=== PATIENT | male | born 1955 ===

== ENCOUNTER 2020-01-21 09:04 | Observation (INO) | payer OTHER ==
[~2020-01-21] VITALS: Ht 175 cm; Wt 153.2 kg
[2020-01-21 11:24] VITALS: BP 132/57
[2020-01-21] MEDS ORDERED: PATIENT MAY USE OWN MEDS, ALL PO SCH (11:45)
[2020-01-21] MEDS ORDERED: NITROGLYCERIN 0.4 MG SL TABS BTL 25'S SL PRN (11:45)
[2020-01-21] MEDS ORDERED: morphine INJ 4 MG/ML 1 ML (VIAL/SYRINGE) IV PRN (11:45)
[2020-01-21] MEDS ORDERED: ONDANSETRON 4 MG/2 ML (SDV) Z0FRAN IVP PRN (11:45)
[2020-01-21] MEDS ORDERED: ALIVE MULTIVITAMIN PO (13:47)
[2020-01-21] MEDS ORDERED: ACET-2267 PO (13:47)
[2020-01-21] MEDS ORDERED: LISI40TA PO (13:47)
[2020-01-21] MEDS ORDERED: APIX5TAB PO (13:47)
[2020-01-21] MEDS ORDERED: HYDR25TA4 PO (13:47)
--- NOTE | 2020-01-21 13:51 | NUR ---
SPOKE WITH THE PT (HE HAD A MED LIST) AND WENT THRU THE EXT MED HISTORY AND CALLED [facility] TO COMPLETE THE MED REC ON 12-13-2019 [facility] FILLED HCTZ 25MG #90/90DS AND LISINOPRIL 40MG #90/90DS (THESE ARE NOT SHOWN ON THE EXT MED HISTORY) OTC MEDS: TYLENOL MTV (PT IS ADAMANT THAT HE CAN ONLY TAKE THE ALIVE BRAND AND ALL OTHER MTV'S CAUSE HIM TO BREAK OUT IN HIVES) PT HAS LORATADINE 10MG ON HIS MEDICATION LIST HOWEVER PT SAYS HE IS NO LONGER TAKING, THEREFORE I DID NOT INCLUDE ON THE MED REC
[2020-01-21] MEDS ORDERED: ENOXAPARIN 100 MG/1 ML (LOVENOX) SYR SC SCH (14:00)
[2020-01-21] MEDS ORDERED: ACETAMINOPHEN 325 MG TABLET ONE (14:22)
[2020-01-21] MEDS: ACETAMINOPHEN 325 MG TABLET PO PRN ×2 (14:25→20:19)
--- NOTE | 2020-01-21 15:02 | History & Physical-Hospitalist ---
History of Present Illness HPI/Chief Complaint Pt is a a 64yo CM with a PMH of HTN and valvular disease who presented to outside ER due to fever, shaking, and chest pain. He states that he was very active yesterday shopping around town with his son and when he got home yesterday around 2pm he was very tired though so he took a npa and when he woke up he was shaking and had a fever of 103. This prompted him to seek evaluation in the ER. He apparently had chest pain and a troponin was checked. It was a high sensitivity troponin and was 27. They trended this and it went to 39 and then 64. This prompted transfer here. He states that he no longer has chest pain. He was given ASA there. He normally follows with Dr Sorto and had a valvular surgical a few years ago though he was unable to tell me which valve. His only complaint at this time is back and hip pain when he states is chronic and he takes Tylenol for. Source: patient Date Seen 01/21/20 Time Seen by a Provider: 15:00 Attending Physician Jackelin Riley MD PCP Slava Sanchez MD Referring Physician Date of Admission Jan 21, 2020 at 11:05 Home Medications & Allergies Home Medications Reviewed patient Home Medication Reconciliation performed by pharmacy medication reconciliations quick service technician and/or nursing. Patients Allergies have been reviewed. Allergies Allergies Coded Allergies Penicillins (Verified Allergy, Unknown, 01/21/20) Past Xubmucd-Ouafck-Ylqaln Hx Past Med/Social Hx: Reviewed Nursing Past Med/Soc Hx Patient Social History Alcohol Use: Denies Use Recreational Drug Use: No Smoking Status: Former Smoker Physical Abuse Screen: No Sexual Abuse: No Recent Foreign Travel: No Recent Hopitalizations: Yes Seasonal Allergies Seasonal Allergies: No Past Medical History Surgeries: Cardiac Currently Using CPAP: Yes Cardiac: Hypertension Musculoskeletal: Arthritis History of Blood Disorders: No Adverse Reaction to Blood Kiran: No Family History Reviewed Nursing Family Hx No Pertinent Family Hx Review of Systems Constitutional: chills, fever, malaise EENTM: no symptoms reported Respiratory: cough; No orthopnea, No short of breath Cardiovascular: see HPI, chest pain Gastrointestinal: No abdominal pain, No constipation, No diarrhea, No nausea, No vomiting Genitourinary: No discharge, No dysuria Musculoskeletal: no symptoms reported Skin: no symptoms reported Psychiatric/Neurological: No Symptoms Reported Physical Exam Physical Exam Vital Signs Vital Signs - First Documented 01/21/20 01/21/20 11:05 11:24 Temp 36.4 Pulse 97 Resp 20 B/P (MAP) 132/57 Pulse Ox 93 O2 Delivery Room Air Capillary Refill : Height, Weight, BMI Height: '" Weight: lbs. oz. kg; 50.61 BMI Method: General Appearance: No Apparent Distress, WD/WN, Obese HEENT: PERRL/EOMI, Moist Mucous Membranes; No Scleral Icterus (L), No Scleral Icterus (R) Neck: Normal Inspection, Supple; No JVD Respiratory: Chest Non Tender, Lungs Clear, No Accessory Muscle Use, No Respiratory Distress Cardiovascular: Regular Rate, Rhythm, No Murmur Gastrointestinal: Normal Bowel Sounds, Non Tender, Soft Extremity: No Calf Tenderness, Swelling (compression socks in place) Neurologic/Psychiatric: Alert, Oriented x3, Normal Mood/Affect Skin: Normal Color, Warm/Dry Results Results/Procedures Labs Laboratory Tests 01/21/20 17:10 01/22/20 02:29 Patient resulted labs reviewed. Assessment/Plan Admission Diagnosis NSTEMI Admission Status: Inpatient Order (span 2 midnights) Reason for Inpatient Admission: see below Assessment and Plan NSTEMI HTN Valvular disease Cardiology consulted, appreciate recs Troponin trended up Monitor on telemetry Request records from [facility] Fever COVID negative Cultures done at outside facility, await results No evidence of infection at this time but will cover with IV abx given valve replacement DVT ppx: Eliquis Diagnosis/Problems Diagnosis/Problems (1) Fever (2) HTN (hypertension) Status: Chronic Qualifiers: Hypertension type: essential hypertension Qualified Codes: I10 - Essential (primary) hypertension (3) NSTEMI (non-ST elevated myocardial infarction) Status: Acute (4) Morbid obesity with BMI of 50.0-59.9, adult Status: Chronic (5) Aortic valve replaced Status: Chronic Clinical Quality Measures DVT/VTE Risk/Contraindication: Risk Factor Score Per Nursin RFS Level Per Nursing on Admit: 3=High JACKELIN RILEY MD Jan 21, 2020 15:02
[2020-01-21 16:00] VITALS: BP 94/52
[2020-01-21] MEDS ORDERED: VANCOMYCIN INJECTION 1,000 MG in NS (IVPB) 250 ML IV SCH (17:00)
[2020-01-21] MEDS ORDERED: CEFEPIME 1,000 MG/SWFI 10 ML IV PUSH IV NR ×2 (17:00)
--- NOTE | 2020-01-21 17:01 | Consultation-Cardiology ---
HPI-Cardiology Cardiology Consultation Date of Consultation 01/21/20 Date of Admission Time Seen by Provider: 16:56 Indication: elevated troponin level HPI 64 years old gentleman with history of aortic valve replacement done about 3 years ago, hypertension hyperlipidemia and morbid obesity. Woke up with fever and chills and temperature 103. Patient went to the emergency room and had septic workup, part of the workup included troponin which was mildly elevated. He denied any chest pain, reported some shortness of breath which has been worsening for the past few days. No syncope or near syncopal episode, reported that he had urinary tract infection and given one dose of antibiotic in the emergency room and transferred to our facility. Since arrival is been sitting comfortably in bed denied any fever or chills denied any chest pain or shortness of breath. Home Medications & Allergies Allergies: Coded Allergies: Penicillins (Verified Allergy, Unknown, 01/21/20) Home Medication List Reviewed: Yes LYC-Ogtzpe-Xnuntu Hx Patient Social History Employed/Student: employed Alcohol Use: Denies Use Recreational Drug Use: No Smoking Status: Former Smoker Recent Foreign Travel: No Recent Hopitalizations: Yes Physical Abuse Screen: No Sexual Abuse: No Past Medical History Discussed below Family Medical History Significant Family History: No Pertinent Family Hx Review of Systems-General Review of Systems Constitutional: chills, fever, malaise EENTM: no symptoms reported Respiratory: see HPI, cough, dyspnea on exertion; No hemoptysis, No orthopnea, No phlegm, No short of breath, No stridor, No wheezing, No other Cardiovascular: see HPI, chest pain Gastrointestinal: no symptoms reported, see HPI; No abdominal pain, No constipation, No diarrhea, No nausea, No vomiting Genitourinary: no symptoms reported, see HPI; No discharge, No dysuria Musculoskeletal: no symptoms reported, see HPI Skin: no symptoms reported, see HPI Psychiatric/Neurological: No Symptoms Reported, See HPI Reviewed Test Results Reviewed Test Results Lab Laboratory Tests Test 01/21/20 12:24 Range/Units Troponin I 0.075 H <0.028 NG/ML Physical Exam Physical Exam Vital Signs Vital Signs - First Documented 01/21/20 01/21/20 11:05 11:24 Temp 36.4 Pulse 97 Resp 20 B/P (MAP) 132/57 Pulse Ox 93 O2 Delivery Room Air Capillary Refill : Height, Weight, BMI Height: '" Weight: lbs. oz. kg; 50.61 BMI Method: General Appearance: No Apparent Distress, WD/WN, Obese HEENT: PERRL/EOMI, Moist Mucous Membranes; No Scleral Icterus (L), No Scleral Icterus (R) Neck: Normal Inspection, Supple; No JVD Respiratory: Chest Non Tender, Lungs Clear, No Accessory Muscle Use, No Respiratory Distress Cardiovascular: Regular Rate, Rhythm, No Murmur, Systolic Murmur Gastrointestinal: Normal Bowel Sounds, Non Tender, Soft Extremity: No Calf Tenderness, Swelling (compression socks in place) Neurologic/Psychiatric: Alert, Oriented x3, Normal Mood/Affect Skin: Normal Color, Warm/Dry A/P-Cardiology Admission Diagnosis Fever and chills Type II myocardial infarction Aortic valve stenosis Hypertension Assessment/Plan Fever and chills, mild leukocytosis, UTI. No other source of infection was noted. Patient has history of aortic valve replacement, will repeat blood culture and start antibiotic coverage empirically. Discussed treatment options with Dr. Riley Mild elevation of troponin, no chest pain, minimal nonspecific ST depression was noted in the lateral leads. No previous EKG to compare. Not having any active pain. Has been on aspirin and oral anticoagulation. I will continue on monitor troponin trend. History of TAVR done about [address] Elizalde, following with Dr. Elizalde. Will evaluate 2-D echo. Hypertension, restart home medication monitor blood pressure Hyperlipidemia, monitor lipids Morbid obesity. Patient has been maintained on Eliquis, known history of atrial fibrillation. I will try to obtain copy of his records from [place] Clinical Quality Measures DVT/VTE Risk/Contraindication: Risk Factor Score Per Nursin RFS Level Per Nursing on Admit: 3=High ANNETTA BOND MD Jan 21, 2020 17:01
[2020-01-21] MEDS ORDERED: VANCOMYCIN 2000 MG/NS 500 ML IVPB IV NR ×2 (17:15)
[2020-01-21 17:41] LABS: HEMOGLOBIN 11.5 g/dL (13.3-17.7); MEAN PLATELET VOLUME 10.5 fL (9.0-12.2); WHITE BLOOD COUNT 14.5 10^3/uL (4.3-11.0)
[2020-01-21 17:51] LABS: POTASSIUM 3.2 MMOL/L (3.6-5.0)
[2020-01-21 17:52] LABS: CALCIUM 8.5 MG/DL (8.5-10.1)
[2020-01-21 17:56] LABS: CREATININE SERUM 1.72 MG/DL (0.60-1.30)
--- NOTE | 2020-01-21 18:29 | NUR ---
CR 1.7; ACTUAL WT 155 KG; VANCO 2000 MG IV GIVEN IN ER; WILL START VANCO 2000 MG IV Q24H; TROUGH AFTER 2ND DOSE
[2020-01-21 19:30] VITALS: BP 117/72
[2020-01-21] MEDS: APIXABAN 5 MG (ELIQUIS) TABLET PO SCH (20:18)
[2020-01-21] MEDS ORDERED: CEFEPIME INJECTION 2,000 MG in WATER (STERILE) FOR INJECTION 20 ML IV SCH (21:00)
[2020-01-22] MEDS: CEFEPIME 1,000 MG/SWFI 10 ML IV PUSH IV SCH ×8 (00:01→18:19)
[2020-01-22 00:05] VITALS: BP 124/74
[2020-01-22] MEDS: ACETAMINOPHEN 325 MG TABLET PO PRN ×4 (02:27→20:36)
[2020-01-22 02:36] LABS: BASOPHILS % (AUTO) 0 % (0-10); EOSINOPHILS % (AUTO) 0 % (0-10); HEMATOCRIT 36 % (40-54); HEMOGLOBIN 11.7 g/dL (13.3-17.7); LYMPHOCYTES # (AUTO) 0.7 10^3/uL (1.0-4.0); LYMPHOCYTES % (AUTO) 6 % (12-44); MEAN CORPUSCULAR HEMOGLOBIN 28 pg (25-34); MEAN CORPUSCULAR HGB CONC 33 g/dL (32-36); MEAN CORPUSCULAR VOLUME 86 fL (80-99); MEAN PLATELET VOLUME 10.4 fL (9.0-12.2); MONOCYTES # (AUTO) 0.9 10^3/uL (0.0-1.0); MONOCYTES % (AUTO) 8 % (0-12); NEUTROPHILS # (AUTO) 8.9 10^3/uL (1.8-7.8); NEUTROPHILS % (AUTO) 85 % (42-75); PLATELET COUNT 185 10^3/uL (130-400); WHITE BLOOD COUNT 10.5 10^3/uL (4.3-11.0)
[2020-01-22 02:45] LABS: ALBUMIN 3.7 GM/DL (3.2-4.5); POTASSIUM 3.3 MMOL/L (3.6-5.0)
[2020-01-22 02:46] LABS: CALCIUM 8.5 MG/DL (8.5-10.1)
[2020-01-22 02:47] LABS: TOTAL PROTEIN 6.8 GM/DL (6.4-8.2)
[2020-01-22 02:49] LABS: BILIRUBIN,TOTAL 0.6 MG/DL (0.1-1.0)
[2020-01-22 02:51] LABS: CREATININE SERUM 1.47 MG/DL (0.60-1.30)
[2020-01-22 03:15] LABS: BAND NEUTROPHILS 6 %; EOSINOPHILS % (MANUAL) 1 %; LYMPHOCYTES % (MANUAL) 5 %; MONOCYTES % (MANUAL) 6 %; NEUTROPHILS % (MANUAL) 82 %
[2020-01-22 03:16] LABS: RBC MORPH NORMAL
[2020-01-22 05:00] VITALS: BP 143/79
[2020-01-22] MEDS: lisINopril 40 MG (PRINIVIL) TABLET PO SCH (07:58)
[2020-01-22] MEDS: APIXABAN 5 MG (ELIQUIS) TABLET PO SCH ×2 (07:58→20:34)
[2020-01-22] MEDS: ASPIRIN E.C. 81 MG (ECOTRIN) TAB PO SCH (07:58)
[2020-01-22] MEDS: HYDROCHLOROTHIAZIDE 25 MG (HCTZ) TAB PO SCH (07:58)
[2020-01-22 08:00] VITALS: BP 132/84
--- NOTE | 2020-01-22 08:22 | Progress Note - Hospitalist ---
Subjective HPI/CC On Admission Date Seen by Provider: Jan 22, 2020 Time Seen by Provider: 08:17 Pt is a a 64yo CM with a PMH of HTN and valvular disease who presented to outside ER due to fever, shaking, and chest pain. He states that he was very active yesterday shopping around town with his son and when he got home yesterday around 2pm he was very tired though so he took a npa and when he woke up he was shaking and had a fever of 103. This prompted him to seek evaluation in the ER. He apparently had chest pain and a troponin was checked. It was a high sensitivity troponin and was 27. They trended this and it went to 39 and t hen 64. This prompted transfer here. He states that he no longer has chest pain. He was given ASA there. He normally follows with Dr Sorto and had a valvular surgical a few years ago though he was unable to tell me which valve. His only complaint at this time is back and hip pain when he states is chronic and he takes Tylenol for. Subjective/Events-last exam Pt Repors feeling ok. When asked specifically he just blows a raspberry. Discussed plan to await culture results and echo. Objective Exam Vital Signs Vital Signs Date Time Temp Pulse Resp B/P (MAP) Pulse Ox O2 Delivery O2 Flow Rate FiO2 01/22/20 15:44 36.3 72 18 136/84 (101) 96 Room Air Capillary Refill : Less Than 3 Seconds General Appearance: No Apparent Distress, Chronically ill, Obese Respiratory: Lungs Clear, No Respiratory Distress Cardiovascular: Regular Rate, Rhythm, No Murmur Gastrointestinal: Normal Bowel Sounds, Non Tender, Soft Neurologic/Psychiatric: Alert, Oriented x3 Results/Procedures Lab Laboratory Tests 01/22/20 02:29 Patient resulted labs reviewed. Assessment/Plan Assessment and Plan Assess & Plan/Chief Complaint NSTEMI HTN Valvular disease- s/p aortic valve replacement Cardiology consulted, appreciate recs Troponin trended down this AM Monitor on telemetry Continue home meds Discussed with Dr Bonilla yesterday, will cover with abx until cultures available Fever COVID negative Cultures done at outside facility, await results Repeat cultures here Continue abx as above DVT ppx: Eliquis Diagnosis/Problems Diagnosis/Problems (1) NSTEMI (non-ST elevated myocardial infarction) Status: Acute (2) Aortic valve replaced Status: Chronic (3) HTN (hypertension) Status: Chronic Qualifiers: Hypertension type: essential hypertension Qualified Codes: I10 - Essential (primary) hypertension (4) Morbid obesity with BMI of 50.0-59.9, adult Status: Chronic (5) Fever Clinical Quality Measures DVT/VTE Risk/Contraindication: Risk Factor Score Per Nursin RFS Level Per Nursing on Admit: 3=High STEPHANIE BLUM MD Jan 22, 2020 08:22
[2020-01-22] MEDS ORDERED: ASPIRIN E.C. 81 MG (ECOTRIN) TAB PO SCH (09:00)
[2020-01-22] MEDS ORDERED: LOPERAMIDE 2 MG (IMODIUM) TABLET PO PRN (11:45)
[2020-01-22 12:00] VITALS: BP 135/76
[2020-01-22] MEDS ORDERED: VANCOMYCIN 2000 MG/NS 500 ML IVPB IV SCH ×2 (12:00)
[2020-01-22 15:44] VITALS: BP 136/84
--- NOTE | 2020-01-22 16:34 | Cardiology Progress Note ---
Cardiology SOAP Progress Note Subjective: Feels weak. No significant chest pain. Objective: I&O/Vital Signs Constitutional: AAO x 3 Respiratory: chest is bilaterally symmetric, lungs clear to auscultation Cardiovascular: regular rate-rhythm, S1 and S2 Gastrointestional: soft, audible bowel sounds Extremities: normal range of motion, non-tender, normal inspection, no lower extremity edema bilateral Neurologic/Psychiatric: no motor/sensory deficits, alert, normal mood/affect, oriented x 3 Skin: normal color Results/Procedures: Labs Microbiology 01/21/20 Blood Culture - Final, Complete No growth A/P: Assessment/Dx: Fever and chills Type II myocardial infarction Aortic valve stenosis Hypertension Plan: Fever and chills, mild leukocytosis, UTI. No other source of infection was noted. Patient has history of aortic valve replacement, will repeat blood culture and start antibiotic coverage empirically. No stigmata of infective endocarditis. Mild elevation of troponin, no chest pain, minimal nonspecific ST depression was noted in the lateral leads. No previous EKG to compare. Not having any active pain. Has been on aspirin and oral anticoagulation. I will continue on monitor troponin trend. History of TAVR done about [address] Elizalde, following with Dr. Elizalde. Will evaluate 2-D echo. Hypertension, restart home medication monitor blood pressure Hyperlipidemia, monitor lipids Morbid obesity. Patient has been maintained on Eliquis, known history of atrial fibrillation. I will try to obtain copy of his records from [place] Thank you for your consultation. Please call me if you have any questions. Charanjit Pantoja MD, FACP, FACC, FSCAI, FHRS, CCDS Interventional Cardiology Cardiac Electrophysiology Vascular Medicine and Endovascular Interventions Jazzy PANTOJA MD Jan 22, 2020 16:34
[2020-01-22 19:42] VITALS: BP 130/76
[2020-01-23] VITALS: BP 98/54
[2020-01-23] MEDS: CEFEPIME 1,000 MG/SWFI 10 ML IV PUSH IV SCH ×8 (00:02→18:26)
[2020-01-23 04:00] VITALS: BP 118/62
[2020-01-23] MEDS: ACETAMINOPHEN 325 MG TABLET PO PRN ×3 (04:11→20:23)
[2020-01-23 07:24] VITALS: BP 126/74
[2020-01-23] MEDS: ASPIRIN E.C. 81 MG (ECOTRIN) TAB PO SCH (08:35)
[2020-01-23] MEDS: HYDROCHLOROTHIAZIDE 25 MG (HCTZ) TAB PO SCH (08:35)
[2020-01-23] MEDS: APIXABAN 5 MG (ELIQUIS) TABLET PO SCH ×2 (08:35→20:22)
[2020-01-23] MEDS: lisINopril 40 MG (PRINIVIL) TABLET PO SCH (08:35)
--- NOTE | 2020-01-23 09:18 | Discharge Summary ---
Diagnosis/Chief Complaint Date of Admission Jan 21, 2020 at 11:05 Date of Discharge Admission Diagnosis NSTEMI Primary Care Slava Sanchez MD Discharge Diagnosis (1) Fever (2) HTN (hypertension) Status: Chronic (3) NSTEMI (non-ST elevated myocardial infarction) Status: Acute (4) Morbid obesity with BMI of 50.0-59.9, adult Status: Chronic (5) Aortic valve replaced Status: Chronic Discharge Summary Discharge Physical Exam Allergies: Coded Allergies: Penicillins (Verified Allergy, Unknown, 01/21/20) Vitals & I&Os Vital Signs Date Time Temp Pulse Resp B/P (MAP) Pulse Ox O2 Delivery O2 Flow Rate FiO2 01/23/20 12:22 66 01/23/20 12:00 Room Air 01/23/20 11:40 36.0 14 125/68 (87) 96 Hospital Course Labs (last 24 hrs) Laboratory Tests 01/23/20 11:05: Vancomycin Level Trough 7.3L Microbiology 01/21/20 Blood Culture - Preliminary, Resulted No growth Patient resulted labs reviewed. Pending Labs Laboratory Tests 01/23/20 11:05: Vancomycin Level Trough 7.3 Discharge Home Medications: Active Scripts Active Reported Tylenol Extra Strength (Acetaminophen) 500 Mg Tablet 1,000 Mg PO Q8H PRN [Alive Multivitamin] 1 Ea PO DAILY Hydrochlorothiazide 25 Mg Tablet 25 Mg PO DAILY Lisinopril 40 Mg Tablet 40 Mg PO DAILY Eliquis (Apixaban) 5 Mg Tablet 5 Mg PO BID Instructions to patient/family Please see electronic discharge instructions given to patient. Clinical Quality Measures DVT/VTE Risk/Contraindication: Risk Factor Score Per Nursin RFS Level Per Nursing on Admit: 3=High Problem Qualifiers (1) HTN (hypertension): Hypertension type: essential hypertension Qualified Codes: I10 - Essential (primary) hypertension STEPHANIE BLUM MD Jan 23, 2020 09:18
--- NOTE | 2020-01-23 09:22 | Discharge Inst-Simple/Standard ---
Discharge Inst-Standard Patient Instructions/Follow Up Plan of Care/Instructions/FU: Please continue to take your medications as written. Please follow up with your primary care doctor to follow up this hospital stay. Activity as Tolerated: Yes Discharge Diet: Cardiac Diet Return to The Hospital For: Chest pain, shortness of breath, swelling, abdominal pain, fever, confusion, if you feel you are getting worse. Planned Outpatient Orders/Ref. Pneu Vac Indicated: Yes STEPHANIE BLUM MD Jan 23, 2020 09:22
[2020-01-23] MEDS ORDERED: REGADENOSON 0.4 MG/5 ML SYR (LEXISCAN) IV ONE (10:15)
[2020-01-23] MEDS ORDERED: TROUGH ORDER-PHARMACY XX NR (11:00)
[2020-01-23 11:40] VITALS: BP 125/68
--- NOTE | 2020-01-23 12:53 | Progress Note - Hospitalist ---
Subjective HPI/CC On Admission Date Seen by Provider: Jan 23, 2020 Time Seen by Provider: 12:47 Pt is a a 64yo CM with a PMH of HTN and valvular disease who presented to outside ER due to fever, shaking, and chest pain. He states that he was very active yesterday shopping around town with his son and when he got home yesterday around 2pm he was very tired though so he took a npa and when he woke up he was shaking and had a fever of 103. This prompted him to seek evaluation in the ER. He apparently had chest pain and a troponin was checked. It was a high sensitivity troponin and was 27. They trended this and it went to 39 and then 64. This prompted transfer here. He states that he no longer has chest pain. He was given ASA there. He normally follows with Dr Sorto and had a valvular surgical a few years ago though he was unable to tell me which valve. His only complaint at this time is back and hip pain when he states is chronic and he takes Tylenol for. Subjective/Events-last exam Pt reports feeling better today but still some shortness of breath. Concerned about his troponin being "way out of whack." Discussed that his troponin was mildly elevated but trending down. Objective Exam Vital Signs Vital Signs Date Time Temp Pulse Resp B/P (MAP) Pulse Ox O2 Delivery O2 Flow Rate FiO2 01/23/20 12:22 66 01/23/20 12:00 Room Air 01/23/20 11:40 36.0 14 125/68 (87) 96 Capillary Refill : Less Than 3 Seconds General Appearance: No Apparent Distress, Anxious, Chronically ill, Obese Respiratory: Lungs Clear, No Respiratory Distress Cardiovascular: Regular Rate, Rhythm, No Murmur Gastrointestinal: Normal Bowel Sounds, Non Tender, Soft Neurologic/Psychiatric: Alert, Oriented x3 Results/Procedures Lab Patient resulted labs reviewed. Assessment/Plan Assessment and Plan Assess & Plan/Chief Complaint NSTEMI HTN Valvular disease Cardiology consulted, appreciate recs Troponin trended up Monitor on telemetry Plan for stress test tomorrow Continue home meds MARISSA Creatinine trending down Replace potassium per protocol Fever- resolved COVID negative BC negative here DC Vanc as no evidence of infection, will DC cefepime tomorrow if continues to do well DVT ppx: Eliquis Diagnosis/Problems Diagnosis/Problems (1) Fever (2) HTN (hypertension) Status: Chronic Qualifiers: Hypertension type: essential hypertension Qualified Codes: I10 - Essential (primary) hypertension (3) NSTEMI (non-ST elevated myocardial infarction) Status: Acute (4) Morbid obesity with BMI of 50.0-59.9, adult Status: Chronic (5) Aortic valve replaced Status: Chronic Clinical Quality Measures DVT/VTE Risk/Contraindication: Risk Factor Score Per Nursin RFS Level Per Nursing on Admit: 3=High STEPHANIE BLUM MD Jan 23, 2020 12:53
[2020-01-23] MEDS: LACTOBACILLUS ACIDOPHILUS (PROBIOTIC) CAPSULE PO SCH ×2 (13:06→18:26)
[2020-01-23 16:29] VITALS: BP 127/79
--- NOTE | 2020-01-23 18:28 | Cardiology Progress Note ---
Cardiology SOAP Progress Note Subjective: No further fever. Objective: I&O/Vital Signs Constitutional: AAO x 3 Respiratory: chest is bilaterally symmetric, lungs clear to auscultation Cardiovascular: regular rate-rhythm, S1 and S2; No diastolic murmur, No systolic murmur Gastrointestional: soft, audible bowel sounds Extremities: normal range of motion, non-tender, normal inspection, no lower extremity edema bilateral Neurologic/Psychiatric: no motor/sensory deficits, alert, normal mood/affect, oriented x 3 Skin: normal color Results/Procedures: Labs Microbiology 01/21/20 Blood Culture - Final, Complete No growth A/P: Assessment/Dx: Fever and chills Type II myocardial infarction Aortic valve stenosis Hypertension Plan: Fever and chills, mild leukocytosis, UTI. No stigmata of infective end ocarditis. Echocardiogram does not show any significant prosthetic valve dysfunction. Mild elevation of troponin, no chest pain, minimal nonspecific ST depression was noted in the lateral leads. No previous EKG to compare. Not having any active pain. Has been on aspirin and oral anticoagulation. Discussed about nuclear stress test. History of TAVR done about [address] Elizalde, following with Dr. Elizalde. Hypertension, restart home medication monitor blood pressure Hyperlipidemia, monitor lipids Morbid obesity. Patient has been maintained on Eliquis, known history of atrial fibrillation. I will try to obtain copy of his records from [place] Thank you for your consultation. Please call me if you have any questions. Charanjit Pantoja MD, FACP, FACC, FSCAI, FHRS, CCDS Interventional Cardiology Cardiac Electrophysiology Vascular Medicine and Endovascular Interventions Jazzy PANTOJA MD Jan 23, 2020 18:28
[2020-01-23 20:00] VITALS: BP 137/72
[2020-01-24] VITALS: BP 116/67
[2020-01-24] MEDS: CEFEPIME 1,000 MG/SWFI 10 ML IV PUSH IV SCH ×6 (00:52→12:39)
[2020-01-24 03:42] LABS: HEMOGLOBIN 11.4 g/dL (13.3-17.7); MEAN PLATELET VOLUME 10.7 fL (9.0-12.2); WHITE BLOOD COUNT 6.3 10^3/uL (4.3-11.0)
[2020-01-24 03:58] LABS: CHLORIDE 101 MMOL/L (98-107); POTASSIUM 3.5 MMOL/L (3.6-5.0); SODIUM 137 MMOL/L (135-145)
[2020-01-24 03:59] LABS: CALCIUM 9.3 MG/DL (8.5-10.1)
[2020-01-24 04:00] LABS: GLUCOSE 97 MG/DL (70-105)
[2020-01-24 04:01] LABS: CARBON DIOXIDE 23 MMOL/L (21-32)
[2020-01-24 04:04] LABS: BUN/CREATININE RATIO 20; GFR ESTIMATED > 60
[2020-01-24 04:06] VITALS: BP 117/70
[2020-01-24 08:00] VITALS: BP 123/70
[2020-01-24] MEDS: LACTOBACILLUS ACIDOPHILUS (PROBIOTIC) CAPSULE PO SCH ×2 (09:07→12:40)
[2020-01-24] MEDS ORDERED: CATHETER FLUSH 10 ML SYR IV PRN (11:00)
[2020-01-24] MEDS ORDERED: REGADENOSON 0.4 MG/5 ML SYR (LEXISCAN) IV ONE (11:36)
[2020-01-24 11:40] VITALS: BP 149/76
[2020-01-24] MEDS: ASPIRIN E.C. 81 MG (ECOTRIN) TAB PO SCH ×2 (12:38→14:51)
[2020-01-24] MEDS: ACETAMINOPHEN 325 MG TABLET PO PRN (12:38)
[2020-01-24] MEDS: HYDROCHLOROTHIAZIDE 25 MG (HCTZ) TAB PO SCH (12:38)
[2020-01-24] MEDS: lisINopril 40 MG (PRINIVIL) TABLET PO SCH (12:39)
[2020-01-24] MEDS: APIXABAN 5 MG (ELIQUIS) TABLET PO SCH (12:40)
[2020-01-24] MEDS: DICLOFENAC 1% GEL 100 GM (VOLTAREN) TUBE TOP SCH ×3 (12:49→16:43)
--- NOTE | 2020-01-24 14:17 | Discharge Summary ---
Diagnosis/Chief Complaint Date of Admission Jan 21, 2020 at 11:05 Date of Discharge Discharge Date: Jan 23, 2020 Admission Diagnosis NSTEMI Primary Care Slava Sanchez MD Discharge Diagnosis (1) Fever (2) HTN (hypertension) Status: Chronic (3) NSTEMI (non-ST elevated myocardial infarction) Status: Acute (4) Morbid obesity with BMI of 50.0-59.9, adult Status: Chronic (5) Aortic valve replaced Status: Chronic Discharge Summary Procedures/Consulations Cardiology- Dr Corcoran Discharge Physical Exam Allergies: Coded Allergies: Penicillins (Verified Allergy, Unknown, 01/21/20) Vitals & I&Os Vital Signs Date Time Temp Pulse Resp B/P (MAP) Pulse Ox O2 Delivery O2 Flow Rate FiO2 01/24/20 15:57 37.3 01/24/20 11:40 66 97 01/24/20 09:00 Room Air 01/24/20 08:00 16 General Appearance: No Apparent Distress, Chronically ill, Obese Respiratory: Lungs Clear, No Respiratory Distress Cardiovascular: Regular Rate, Rhythm, No Murmur Neurologic/Psychiatric: Alert, Oriented x3 Hospital Course Pt was admitted due elevated troponin. He had a fever at home and was tested for COVID and this was negative. He was covered with IV abx given valve replacement but his cultures were negative and his symptoms resolved. Echo was negative as well. His troponin was mildly elevated at outside facility so he was transferred here. He had serial troponins done here and they trended down. Due to his significant heart history he underwent stress testing per Dr Corcoran. This was negative. His symptoms overall improved and he was discharged home ins table condition to follow up with his primary cardiology Dr Sorto early next week. Labs (last 24 hrs) Laboratory Tests 01/24/20 03:23: White Blood Count 6.3, Red Blood Count 3.98L, Hemoglobin 11.4L, Hematocrit 34L, Mean Corpuscular Volume 86, Mean Corpuscular Hemoglobin 29, Mean Corpuscular Hemoglobin Concent 33, Red Cell Distribution Width 14.3, Platelet Count 230, Mean Platelet Volume 10.7, Sodium Level 137, Potassium Level 3.5L, Chloride Level 101, Carbon Dioxide Level 23, Anion Gap 13, Blood Urea Nitrogen 18, Creatinine 0.90, Estimat Glomerular Filtration Rate > 60, BUN/Creatinine Ratio 20, Glucose Level 97, Calcium Level 9.3 Microbiology 01/21/20 Blood Culture - Preliminary, Resulted No growth Patient resulted labs reviewed. Discussion & Recommendations Discharge Planning: >30 minutes discharge planning Discharge Home Medications: Active Scripts Active Reported Tylenol Extra Strength (Acetaminophen) 500 Mg Tablet 1,000 Mg PO Q8H PRN [Alive Multivitamin] 1 Ea PO DAILY Hydrochlorothiazide 25 Mg Tablet 25 Mg PO DAILY Lisinopril 40 Mg Tablet 40 Mg PO DAILY Eliquis (Apixaban) 5 Mg Tablet 5 Mg PO BID Instructions to patient/family Please see electronic discharge instructions given to patient. Clinical Quality Measures DVT/VTE Risk/Contraindication: Risk Factor Score Per Nursin RFS Level Per Nursing on Admit: 3=High Problem Qualifiers (1) HTN (hypertension): Hypertension type: essential hypertension Qualified Codes: I10 - Essential (primary) hypertension STEPHANIE BLUM MD Jan 24, 2020 14:17
--- NOTE | 2020-01-24 20:15 | Cardiology Progress Note ---
Cardiology SOAP Progress Note Subjective: No cardiac complaints. No fever. Objective: I&O/Vital Signs Constitutional: AAO x 3 Respiratory: chest is bilaterally symmetric, lungs clear to auscultation Cardiovascular: regular rate-rhythm, S1 and S2 Gastrointestional: soft, audible bowel sounds Extremities: normal range of motion, non-tender, normal inspection, no lower extremity edema bilateral Neurologic/Psychiatric: no motor/sensory deficits, alert, normal mood/affect, oriented x 3 Skin: normal color Results/Procedures: Labs Microbiology 01/21/20 Blood Culture - Final, Complete No growth A/P: Assessment/Dx: Fever, leukocytosis, Type II myocardial infarction Plan: Fever and chills, mild leukocytosis, UTI. No other source of infection was noted. No stigmata of infective endocarditis. Mild elevation of troponin, no chest pain, minimal nonspecific ST depression was noted in the lateral leads. No previous EKG to compare. Not having any active pain. Has been on aspirin and oral anticoagulation. Nuclear stress test showed normal myocardial perfusion during rest and stress. Patient can be discharged to follow-up with Dr. Sorto. History of TAVR done about [address] Elizalde, following with Dr. Elizalde. Echo does not show any major abnormality. Hypertension, restart home medication monitor blood pressure Hyperlipidemia, monitor lipids Morbid obesity. Patient has been maintained on Eliquis, known history of atrial fibrillation. Thank you for your consultation. Please call me if you have any questions. Charanjit Pantoja MD, FACP, FACC, FSCAI, FHRS, CCDS Interventional Cardiology Cardiac Electrophysiology Vascular Medicine and Endovascular Interventions Jazzy PANTOJA MD Jan 24, 2020 20:15
--- NOTE | 2020-01-30 15:34 | Cardiology Stress Test Report ---
Stress Test Report Type of NM Stress Test: Test Type: LEXISCAN 0.4MG/5ML Date of Procedure/Referring: Date of Procedure: Jan 24, 2020 PCP Jackelin Riley MD Admitting Physician Slava Sanchez MD Indications: Borderline positive troponin. Baseline Heart Rate: 75 Baseline Blood Pressure: Blood Pressure Systolic: 149 Blood Pressure Diastolic: 76 Baseline EKG: Baseline EKG: sinus rhythm Summary & Conclusion: Summary: The patient was brought to the stress lab after informed consent was taken. Stress test was performed according to the Lexiscan protocol. 0.4 mg of IV Lexiscan was given. Low-grade exercise was performed. Baseline EKG showed sinus rhythm at 75 BPM, blood pressure 149/66 mmHg. Maximum heart rate 76 bpm and blood pressure 150/60 mmHg. Patient did not have any chest pain, arrhythmias or ST segment changes during the stress test. 10.41 mCi of Myoview were given for rest imaging and 33 mCi of Myoview given for stress imaging. Transient ischemic dilatation score 1.18, EF 80 percent. Normal wall motion. Normal myocardial perfusion imaging during rest and stress. Conclusion: Pharmacological stress test was negative for ischemia. Normal LV function with no wall motion abnormalities. Normal myocardial perfusion imaging during rest and stress. Jazzy PANTOJA MD Jan 30, 2020 15:34
== END 2020-01-24 17:14 | disposition home or self-care (01) ==
LOC: CSD 11:05 → INTOOBSV 11:05
PROVIDERS: ADMIT Family Medicine; ATTEND Family Medicine
DX: I21.4 Non-ST elevation (NSTEMI) myocardial infarction (principal); Z68.43 Body mass index [BMI] 50.0-59.9, adult; N17.9 Acute kidney failure, unspecified; N39.0 Urinary tract infection, site not specified; R50.9 Fever, unspecified; I10 Essential (primary) hypertension; M19.91 Primary osteoarthritis, unspecified site; Z20.828 Contact with and (suspected) exposure to other viral communicable diseases; E66.01 Morbid (severe) obesity due to excess calories; E78.5 Hyperlipidemia, unspecified; I48.91 Unspecified atrial fibrillation; Z79.01 Long term (current) use of anticoagulants; Z95.2 Presence of prosthetic heart valve; Z87.891 Personal history of nicotine dependence
CPT/HCPCS: 78452; 80048 ×2; 80053; 80202; 84484 ×2; 85007; 85027 ×3; 87040; 93005 ×2; 93017; 93306; A9502; 36415